=== PATIENT | male | born 1955 | race Caucasian/White ===

== ENCOUNTER 2016-12-21 05:43 | Day surgery (SDC) | payer OTHER ==
[~2016-12-21] VITALS: Ht 160 cm; Wt 44.3 kg
[~2016-12-21 05:43] MED LIST: BISA-57 PO; HYDR-3504 PO; OMEP20CA16 PO
[2016-12-21 06:22] VITALS: Ht 160 cm; Wt 44.3 kg
[2016-12-21 06:36] VITALS: BP 155/78; PULSE 50; RESP 15
[2016-12-21] MEDS ORDERED: [UNRECOGNIZED DRUG - REMARK] (06:45)
--- NOTE | 2016-12-21 07:51 | OPPN ---
Date/Time of Note Date/Time of Note DATE: 12/21/16 TIME: 07:50 Operative Report Preoperative Diagnosis Abdominal pain Status post surgery for gastric cancer Postoperative Diagnosis Status post subtotal gastrectomy Possible monilial esophagitis Operation/Procedure Performed Esophagogastroduodenoscopy and biopsy Surgeon see signature line surgical dental assistant None Anesthesia: moderate sedation Estimated blood loss: none Transfusion Required none Specimen Gastric mucosal biopsy Esophageal biopsy Grafts/Implants none Complications none TOMMY CHO MD Dec 21, 2016 07:51
[2016-12-21] MEDS ORDERED: FENTAnyl 50 MCG/ML VIAL ONE (08:17)
[2016-12-21] MEDS ORDERED: MIDAZOLAM 1 MG/ML 2 ML INJ ONE ×2 (08:17)
--- NOTE | 2016-12-21 09:42 | GILP ---
DATE OF PROCEDURE: 12/21/2016 PROCEDURE PERFORMED: Esophagogastroduodenoscopy and biopsy. SURGEON: Armani Mattson MD. PREOPERATIVE DIAGNOSES: 1. Abdominal pain. 2. Status post surgery for gastric cancer. POSTOP DIAGNOSES: 1. Status post subtotal gastrectomy. 2. Gastric mucosal biopsies were taken for histopathology. 3. Possible monilial esophagitis and biopsies were taken. INDICATION: Mr. Simone Gonzales is a 61-year-old male patient who had surgery for gastric cancer. He had upper abdominal pain. The patient needed a follow-up exam. The procedure and possible complications were well explained to the patient. He understood and consented to the procedure. DESCRIPTION OF PROCEDURE: Under the influence of fentanyl and Versed, the gastroscope was carefully introduced into the esophagus. Under direct vision, it was advanced to the stomach and into the small bowel loop. FINDINGS: Esophagus the patient had possible monilial esophagitis and biopsies were taken for histopathology. Stomach, the patient status post subtotal gastrectomy with a small gastric pouch. Biopsies were taken for histopathology. The small bowel loop was normal. He tolerated the procedure very well, and there was no complication from the procedure. At the end of procedure, he was awake with stable vital signs and he was discharged home in care of his family. IMPRESSION: 1. Status post subtotal gastrectomy and gastric mucosal biopsies were taken for histopathology. 2. Possible monilial esophagitis and biopsies were taken. PLAN: Await histopathology report. Dictated By: MD PIA Sinclair/tabitha/nighat /Document#: [id number] CC: Salvador Nino MD;*End*
--- NOTE | 2016-12-22 11:21 | CONS ---
PATIENT NAME: SIMONE LEWIS DATE OF ADMISSION: DATE OF CONSULTATION: 12/11/[address] Nino, I thank you very much for this kind referral. Mr. Simone Dolan is a 61-year-old male patient who has referred to me for further evaluation of upper abdominal pain. The patient is status post subtotal gastrectomy for gastric cancer. He has also undergone radiation and chemotherapy. His appetite has been somewhat poor. He does not have any nausea or vomiting. He denies any gastrointestinal tract bleeding. He has been taking Pheba for the pain. There is no history of gallstones or liver disease. Denies any change in the bowel habits or rectal bleeding. Not hypertensive or diabetic. No heart disease, lung problem, or kidney disease. He used to smoke and drink heavily; now, he has quit both of them. ALLERGIES: NO DRUG ALLERGY. MEDICATIONS: Pheba. PHYSICAL EXAMINATION: VITALS: He is 5 feet 3 inches tall and weighs 101 pounds. HEART: Normal heart sounds. LUNGS: Clear. ABDOMEN: Soft. No masses. Normal bowel sounds. NEURO: Normal neurological exam. IMPRESSION: 1. Upper abdominal pain. 2. Status post subtotal gastrectomy for gastric cancer. Status post radiation therapy and chemotherapy. The patient is an Pheba for the pain. PLAN: Endoscopy for further evaluation. The procedure and possible complications were well explained to the patient. He understands and consents to the procedure. I thank once again. With warmest personal regards, Dictated By: MD PIA Sinclair/tabitha/honorio /Document#: [id number]
== END 2016-12-21 15:55 | disposition home or self-care (01) ==
LOC: GIL 05:43
PROVIDERS: ATTEND Internal Medicine Gastroenterology
DX: K29.50 Unspecified chronic gastritis without bleeding (principal); B37.81 Candidal esophagitis
CPT/HCPCS: 43239; 88305; 88312; 88313; J2250; J3010; Z7610

== ENCOUNTER 2017-10-14 11:56 | Inpatient (IN) | END 2017-10-19 14:57 | disposition home or self-care (01) | DRG 374 ==

== ENCOUNTER 2017-11-13 13:50 | Inpatient (IN) | END 2017-11-21 17:45 | disposition home health service (06) | DRG 871 ==

== ENCOUNTER 2018-01-28 13:41 | Inpatient (IN) | END 2018-01-28 18:21 | disposition home or self-care (01) | DRG 369 ==

== ENCOUNTER 2018-02-03 16:40 | Inpatient (IN) | END 2018-02-08 18:55 | disposition hospice, home (50) | DRG 871 ==